=== PATIENT | female | born 1980 | race Caucasian/White ===

== ENCOUNTER 2017-04-07 10:29 | Emergency (ER) | payer MEDICAID ==
[~2017-04-07] VITALS: Ht 162.6 cm; Wt 73.5 kg
[~2017-04-07 10:29] MED LIST: PRENAT PO
[2017-04-07 10:31] VITALS: Ht 162.6 cm; Wt 73.5 kg
[2017-04-07] MEDS ORDERED: DIPHENHYDRAMINE 25 MG CAP PO ONE (11:00)
--- NOTE | 2017-04-07 11:10 | QN ---
Documentation Comment iup 23 weeks co of pruritic rash all over body for several day. no ob complaints vss papular rash over body nst reactive a/p iup 23 weeks pruritic rash- scabies? to ER for eval ob cleared MARY MOTA MD Apr 07, 2017 11:09
[2017-04-07 11:16] LABS: ADD SCAN DIFF NO
[2017-04-07 11:24] LABS: BASOPHILS % 0.1 % (0.0-2.0); EOSINOPHILS # 0.3 10^3/ul (0.0-0.5); EOSINOPHILS % 3.3 % (0.0-7.0); HEMATOCRIT 37.6 % (37.0-47.0); HEMOGLOBIN 12.9 g/dl (12.0-16.0); LYMPHOCYTES # 1.6 10^3/ul (0.8-2.9); LYMPHOCYTES % 17.7 % (15.0-51.0); MEAN CORPUSCULAR HEMOGLOBIN 29.5 pg (29.0-33.0); MEAN CORPUSCULAR HGB CONC 34.3 g/dl (32.0-37.0); MEAN CORPUSCULAR VOLUME 85.8 fl (82.0-101.0); MEAN PLATELET VOLUME 9.4 fl (7.4-10.4); MONOCYTE # 0.6 10^3/ul (0.3-0.9); MONOCYTES % 6.3 % (0.0-11.0); NEUTROPHIL # 6.7 10^3/ul (1.6-7.5); NEUTROPHILS % 72.2 % (39.0-77.0); PLATELET COUNT 300 10^3/UL (140-415); RED BLOOD COUNT 4.38 10^6/ul (4.20-5.40); RED CELL DISTRIBUTION WIDTH 13.8 % (11.5-14.5); WHITE BLOOD COUNT 9.3 10^3/ul (4.8-10.8)
[2017-04-07 11:41] LABS: ALBUMIN 4.2 g/dl (3.3-4.9); ALBUMIN/GLOBULIN RATIO 1.35; BILIRUBIN,INDIRECT 0.1 mg/dl (0-1.1); BILIRUBIN,TOTAL 0.1 mg/dl (0.2-1.3); CALCIUM 9.7 mg/dl (8.4-10.2); CREATININE 0.48 mg/dl (0.44-1.00); POTASSIUM 3.9 mmol/L (3.5-5.1); TOTAL PROTEIN 7.3 g/dl (6.1-8.1)
[2017-04-07] MEDS ORDERED: CETI10CA PO (11:45)
[2017-04-07] MEDS ORDERED: HC30CR25 TOP (11:45)
--- NOTE | 2017-04-07 11:50 | ERD ---
ER Documentation Chief Complaint Date/Time DATE: 04/07/17 TIME: 11:48 Chief Complaint GENERALIZED RASH X 3 DAYS , 24 WEEKS PREG , CLEARED BY OB TRIAGE HPI This 36-year-old female presents with an itchy rash for last 3 days. She is 24 weeks by dates. She denies any bleeding, fevers, vomiting, shortness of the chest pain or recent illnesses ROS All systems reviewed and are negative except as per history of present illness. Medications Home Meds Active Scripts Hydrocortisone* Topical (Hydrocortisone* Topical) 2.5%-28.3 Gm Cream..g., 1 APPLIC TOP QID for 7 Days, #1 TUB 30G Prov:MARYAM ARAMBULA MD 04/07/17 Cetirizine Hcl* (Zyrtec*) 10 Mg Capsule, 10 MG PO DAILY, #15 TAB.CHEW Prov:MARYAM ARAMBULA MD 04/07/17 Reported Medications Multivit/Min/Fol Ac/Iron/Pren* ( S*) 1 Tab Tab, 1 TAB PO DAILY, TAB 04/07/17 Allergies Allergies: Coded Allergies: No Known Allergy (Unverified , 03/27/15) PMhx/Soc Medical and Surgical Hx: pt denies Medical Hx, pt denies Surgical Hx Hx Alcohol Use: No Hx Substance Use: No Hx Tobacco Use: No Smoking Status: Never smoker Physical Exam Vitals Vital Signs Date Time Temp Pulse Resp B/P Pulse Ox O2 Delivery O2 Flow Rate FiO2 04/07/17 10:31 98.2 86 18 113/63 98 Physical Exam Const: [] Alert, not ill-appearing. Head: Atraumatic Eyes: Normal Conjunctiva ENT: Normal External Ears, Nose and Mouth. Neck: Full range of motion..~ No meningismus. Resp: Clear to auscultation bilaterally Cardio: Regular rate and rhythm, no murmurs Abd: Soft, non tender, non distended. Normal bowel sounds. Mass consistent with a second third trimester . Skin: No petechiae or purpura. There are scattered macular papular rash without warmth, induration, streaking or vesicles. Is primarily in the upper extremities. There is minimal on the trunk. Back: No midline or flank tenderness Ext: No cyanosis, or edema Neur: Awake and alert Psych: Normal Mood and Affect Result Diagram: 04/07/17 1100 04/07/17 1100 Results 24 hrs Laboratory Tests Test 04/07/17 11:00 White Blood Count 9.310^3/ul Red Blood Count 4.3810^6/ul Hemoglobin 12.9g/dl Hematocrit 37.6% Mean Corpuscular Volume 85.8fl Mean Corpuscular Hemoglobin 29.5pg Mean Corpuscular Hemoglobin Concent 34.3g/dl Red Cell Distribution Width 13.8% Platelet Count 95304^3/UL Mean Platelet Volume 9.4fl Neutrophils % 72.2% Lymphocytes % 17.7% Monocytes % 6.3% Eosinophils % 3.3% Basophils % 0.1% Nucleated Red Blood Cells % 0.0/100WBC Neutrophils # 6.710^3/ul Lymphocytes # 1.610^3/ul Monocytes # 0.610^3/ul Eosinophils # 0.310^3/ul Basophils # 0.010^3/ul Nucleated Red Blood Cells # 0.010^3/ul Sodium Level 140mmol/L Potassium Level 3.9mmol/L Chloride Level 102mmol/L Carbon Dioxide Level 22mmol/L Anion Gap 20 Blood Urea Nitrogen 7mg/dl Creatinine 0.48mg/dl Glucose Level 99mg/dl Calcium Level 9.7mg/dl Total Bilirubin 0.1mg/dl Direct Bilirubin 0.00mg/dl Indirect Bilirubin 0.1mg/dl Aspartate Amino Transf (AST/SGOT) 21IU/L Alanine Aminotransferase (ALT/SGPT) 20IU/L Alkaline Phosphatase 107IU/L Total Protein 7.3g/dl Albumin 4.2g/dl Globulin 3.10g/dl Albumin/Globulin Ratio 1.35 Current Medications Medications (Trade) Dose Ordered Sig/Allen Route PRN Reason Start Time Stop Time Status Last Admin Dose Admin Diphenhydramine HCl (Benadryl) 25 mg ONCE ONCE PO 04/07/17 11:00 04/07/17 11:02 DC 04/07/17 10:57 Procedures/MDM Patient was cleared by OB prior to ER evaluation. Patient presents with signs and symptoms of what appear to be an eczema-like rash or possibly viral exanthem. Concern is for cholestasis of although findings are not specific for this. Nonetheless CBC and CMP were performed which showed no acute abnormalities or transaminitis. Patient will be treated empirically with hydrocortisone and Zyrtec although this may be an unspecified rash of . Patient is advised to return for vaginal bleeding, fevers, worsening redness, vomiting, abdominal pain, new worsening symptoms with primary doctor this week. The patient was stable with no new complaints during the ER course. Clinically, there is no current evidence to suggest meningitis, sepsis, acute abdomen, pneumonia, acute coronary syndrome, pulmonary embolism, or any other emergent condition appearing to require further evaluation or hospitalization. The patient should certainly return for any new or worsening symptoms per the aftercare instructions. They should otherwise follow-up with her primary care doctor for reevaluation this week. Departure Diagnosis: Primary Impression: Rash Condition: Stable Patient Instructions: Dermatitis, Non-Specific Additional Instructions: Cheque otro vez con villa doctor primario en el proximo sosa or regresa para mas o nueva simptomas. MARYAM ARAMBULA MD Apr 07, 2017 11:50
[2017-04-09] MEDS ORDERED: BEN50 PO (05:21)
[2017-04-09] MEDS ORDERED: CEPH-443 PO (05:21)
== END 2017-04-07 12:05 | disposition home or self-care (01) ==
LOC: FTE 10:29
DX: O99.89 Other specified diseases and conditions complicating pregnancy, childbirth and the puerperium (principal); R21 Rash and other nonspecific skin eruption; Z3A.24 24 weeks gestation of pregnancy
CPT/HCPCS: 80053; 85025; Z7502; Z7610; 99283

== ENCOUNTER 2017-04-09 05:03 | Emergency (ER) | END 2017-04-09 05:45 | disposition home or self-care (01) | DX: R21 Rash and other nonspecific skin eruption (principal) | CPT/HCPCS: 96372; J1200; Z7502 ==

== ENCOUNTER 2017-04-28 15:49 | Inpatient (IN) | payer MEDICAID ==
[~2017-04-28] VITALS: Ht 160 cm; Wt 74.8 kg
[~2017-04-28 15:49] MED LIST changes: +BEN50 PO; +CEPH-443 PO; +CETI10CA PO; +HC30CR25 TOP
[2017-04-28 16:34] VITALS: Ht 160 cm; Wt 74.8 kg
[2017-04-28 17:34] VITALS: BP 109/56; PULSE 83; RESP 18
[2017-04-29 01:06] LABS: ALBUMIN 3.6 g/dl (3.3-4.9); ALBUMIN/GLOBULIN RATIO 1.02; CALCIUM 9.1 mg/dl (8.4-10.2); CREATININE 0.47 mg/dl (0.44-1.00); POTASSIUM 3.7 mmol/L (3.5-5.1); TOTAL PROTEIN 7.1 g/dl (6.1-8.1)
--- NOTE | 2017-04-29 01:46 | RADRPT ---
PROCEDURE: ULTRASOUND BIOPHYSICAL PROFILE CLINICAL INDICATION: 36-year-old female with decreased movement for viability . TECHNIQUE: Multiple sonographic images were obtained in order to perform a biophysical profile The images were reviewed on a PACS workstation. COMPARISON: None. FINDINGS: There is a single viable intrauterine gestation. There is a vertex presentation. Cardiac activity i s present at 126 beats per minute. The placenta is anterior. The results of the biophysical profile are as follows: breathing movement = 2/2 Gross body movement = 2/2 tone = 2/2 Qualitative amniotic fluid volume = 2/2 Amniotic fluid index equals 14.0 cm. This yields a biophysical profile score of 8/8. IMPRESSION: Biophysical profile score is 8/8. .Marquis Howard MD, Date Time Electronically viewed and signed by .Marquis Howard MD, on 04/29/2017 01:46 .M/
[2017-04-29] MEDS: LACTATED RINGER'S 1,000 ML IV SCH ×5 (01:59→18:15)
[2017-04-29] MEDS ORDERED: TERBUTALINE 1 MG/ML INJ SC SCH ×2 (02:30→03:00)
--- NOTE | 2017-04-29 06:46 | HP ---
Date/Time of Note Date/Time of Note DATE: 04/29/17 TIME: 06:29 OB - History Hx of Present Free Text/Dictation 36y.o had X2 at 27w 1d with itching sensation on whole body whose bile acid (cholic acid) was elevated on 04/09 3.1, 04/15 3.8 during the observation there was audible deceleration s on few occasions nor profound LFT wnl EFM mild uterine activities q4-7min patient has been using hydrocortisone cream and benadryl which wasnt relieving the itching sensation. patient was admitted for extended observation for FHR and initiated for ursodioland repeat fractionated bile acid and metabolic panel and christina consult Chief Complaint: body itching Estimated Due Date: Jul 27, 2017 : 3 Para: 2 Spontaneous : 0 Therapeutic : 0 Care: Good Care Ultrasounds: Normal mid trimester US Obstetrical Complications: None Medical Complications: None Past Family/Social History * Past Medical, Surgical, Family and Obstetric Histories reviewed from chart. Blood Type: O+ Rubella: immune RPR/VDRL: Negative GBS Status: Unknown HBsAG: Negative OB Admission Exam Vital Signs Vital Signs Vital Signs Date Time Temp Pulse Resp B/P Pulse Ox O2 Delivery O2 Flow Rate FiO2 04/28/17 17:34 98.5 83 18 109/56 Room Air Physical Exam HEENT: WNL Heart: Rhythm Normal Lungs: Clear, Equal Abdomen: WNL Extremities: Normal Reflexes: Normal Cervical Dilatation: other Effacement: Other Station: Other Membranes: Intact Amniotic Fluid: Unevaluable Heart Rate: 130's Accelerations: Accelerations Present Decelerations: Variable Decelerations Varibility: Moderate Contractions on Admission: 6-10 Minutes Apart Intensity: Mild Last 72 hours Lab Results CBC & BMP 04/28/17 20:15 Liver Function Test 04/28/17 20:15 Alanine Aminotransferase (ALT/SGPT) 30 Albumin 3.6 Alkaline Phosphatase 129 H Aspartate Amino Transf (AST/SGOT) 32 Direct Bilirubin 0.00 Total Protein 7.1 OB Assessment/Plan Other Assessment: IUP 27w1d cholestasis non reassuring FHR Other plan: extended observation JESÚS MCDERMOTT MD Apr 29, 2017 06:40
[2017-04-29 08:19] LABS: ADD UMIC YES; UR ASCORBIC ACID NEGATIVE (NEGATIVE); UR BILIRUBIN (Dip) NEGATIVE (NEGATIVE); UR BLOOD (Dip) NEGATIVE (NEGATIVE); UR BUDDING YEAST FEW /HPF (NONE SEEN); UR CLARITY CLOUDY (CLEAR); UR COLOR YELLOW (YELLOW); UR GLUCOSE (Dip) NEGATIVE (NEGATIVE); UR KETONES (Dip) NEGATIVE (NEGATIVE); UR LEUKOCYTE ESTERASE (Dip) 2+ Leu/ul (NEGATIVE); UR NITRITE (Dip) NEGATIVE (NEGATIVE); UR RBC 1 /HPF (0-5); UR TOTAL PROTEIN (Dip) NEGATIVE (NEGATIVE); UR UROBILINOGEN (Dip) NEGATIVE (NEGATIVE)
[2017-04-29] MEDS: DOCUSATE SODIUM 100 MG CAP PO SCH (09:00)
[2017-04-29] MEDS: URSODIOL 300 MG CAP PO SCH ×3 (09:23→21:06)
[2017-04-29] MEDS: PRENATAL VITAMIN PO SCH (09:23)
--- NOTE | 2017-04-29 15:52 | CONS ---
Date/Time of Note Date/Time of Note DATE: 04/29/17 TIME: 15:42 Consultation Date/Type/Reason Admit Date/Time Apr 29, 2017 at 02:15 OB high risk consult Reason for Consultation This patient is 36 years old 3 para 2 with estimated date of confinement of 07/27/2017 which makes her now 27 weeks and 1 day . She developed the symptoms of cholestasis of with pruritus of hands and legs. The bile acid level was ordered on April 09 the result was 3.1 and 6 days later on April 15 it was 3.8. For this reason she was admitted in high risk area for further evaluation and treatment. On examination there was some deceleration of heart rate occurred ,. Patient subsequently was admitted in the hospital. Another bile acid level was ordered 2 days ago which the result is not available now. However her other lab studies including CBC electrolyte and liver panel were all within normal limits except for somewhat elevated alkaline phosphatase which is not very unusual during . Laboratory Tests Test 04/28/17 20:15 Urine Color YELLOW Urine Clarity CLOUDY Urine pH 8.0 Urine Specific [place] 1.010 Urine Ketones NEGATIVEmg/dL Urine Nitrite NEGATIVEmg/dL Urine Bilirubin NEGATIVEmg/dL Urine Urobilinogen NEGATIVEmg/dL Urine Leukocyte Esterase 2+Juarez/ul Urine Microscopic RBC 1/HPF Urine Microscopic WBC 5/HPF Urine Calcium Oxalate Crystals MODERATE/HPF Urine Yeast (Budding) FEW/HPF Urine Hemoglobin NEGATIVEmg/dL Urine Glucose NEGATIVEmg/dL Urine Total Protein NEGATIVEmg/dl Sodium Level 140mmol/L Potassium Level 3.7mmol/L Chloride Level 104mmol/L Carbon Dioxide Level 23mmol/L Anion Gap 17 Blood Urea Nitrogen 7mg/dl Creatinine 0.47mg/dl Glucose Level 83mg/dl Calcium Level 9.1mg/dl Total Bilirubin 0.0mg/dl Direct Bilirubin 0.00mg/dl Indirect Bilirubin 0.0mg/dl Aspartate Amino Transf (AST/SGOT) 32IU/L Alanine Aminotransferase (ALT/SGPT) 30IU/L Alkaline Phosphatase 129IU/L Total Protein 7.1g/dl Albumin 3.6g/dl Globulin 3.50g/dl Albumin/Globulin Ratio 1.02 Current Medications Medications (Trade) Dose Ordered Sig/Allen Route PRN Reason Start Time Stop Time Status Last Admin Dose Admin Lactated Ringer's (Lr) 1,000 ml @ 125 mls/hr Q8H IV 04/29/17 01:59 04/29/17 09:23 125 MLS/HR Prenat Multivit/ Tax Consultant/Iron/Folic Ac () 1 tab DAILY PO 04/29/17 09:00 04/29/17 09:23 1 TAB Docusate Sodium (Colace) 100 mg DAILY PO 04/29/17 09:00 Ursodiol (Actigall) 300 mg TID PO 04/29/17 09:00 04/29/17 12:48 300 MG Terbutaline Sulfate (Brethine) 0.25 mg ONCE SC 04/29/17 02:30 04/30/17 02:29 Terbutaline Sulfate (Brethine) 0.25 mg ONCE SC 04/29/17 03:00 04/30/17 02:59 Constitutional: other, No chills, No diaphoresis, No disoriented, No febrile, No improved, No no complaints, No poor po, No requiring IVF, No requiring O2 Eyes: other (No evidence of jaundice on examination of the eyes), No discharge, No no complaints, No pain, No redness, No visual change ENT: No bleeding, No congestion, No discharge, No dysphagia, No no complaints, No other, No pain, No sore throat Respiratory: No cough, No no complaints, No other, No pain, No pleuritic pain, No shortness of breath, No sputum, No wheezing Cardiovascular: No chest pain, No edema, No lightheadedness, No no complaints, No orthopenea, No other, No palpitations, No paroxysmal nocturnal dyspnea Gastrointestinal: other (No hepatomegaly no abdominal pain), No blood, No constipation, No decreased appetite, No diarrhea, No flatus, No nausea, No no complaints, No pain, No passing stool, No vomiting Genitourinary: other (Due to lack of contractions pelvic exam was not performed ), No bleeding, No discharge, No dysuria, No flank pain, No hematuria, No no complaints Musculoskeletal: No back pain, No bone/joint pain, No neck pain, No no complaints, No other, No restricted range of motion, No swelling Skin: other (Some degree of erythema on hands and sole of the feet), No bruising, No erythema, No laceration, No no complaints, No pruritis, No rash, No skin lesions Neurologic: other (Knee-jerk reflex are normal), No confusion, No dizziness, No focal-weakness, No headache, No no complaints , No seizure, No syncope Additional Comments Today patient has list of itching and if she continues improving she will be discharged home to be followed in the clinic She is advised to continue Actigall 300 mg 3 times a day and have close follow- up in her rehabilitation aide/scheduler office also to be seen again in triage area for further monitoring Social History Smoking Status: Never smoker Exam/Review of Systems Vital Signs Vitals Vital Signs Date Time Temp Pulse Resp B/P Pulse Ox O2 Delivery O2 Flow Rate FiO2 04/28/17 17:34 98.5 83 18 109/56 Room Air Intake and Output 04/28/17 04/28/17 04/29/17 14:59 22:59 06:59 Intake Total 1250 ml Output Total 450 ml Balance 800 ml Results Result Diagram: 04/28/172014 Results 24 hrs Laboratory Tests Test 04/28/17 20:15 Urine Color YELLOW Urine Clarity CLOUDY A Urine pH 8.0 Urine Specific [place] 1.010 Urine Ketones NEGATIVE Urine Nitrite NEGATIVE Urine Bilirubin NEGATIVE Urine Urobilinogen NEGATIVE Urine Leukocyte Esterase 2+ H Urine Microscopic RBC 1 Urine Microscopic WBC 5 Urine Calcium Oxalate Crystals MODERATE Urine Yeast (Budding) FEW A Urine Hemoglobin NEGATIVE Urine Glucose NEGATIVE Urine Total Protein NEGATIVE Sodium Level 140 Potassium Level 3.7 Chloride Level 104 Carbon Dioxide Level 23 Anion Gap 17 H Blood Urea Nitrogen 7 Creatinine 0.47 Glucose Level 83 Calcium Level 9.1 Total Bilirubin 0.0 L Direct Bilirubin 0.00 Indirect Bilirubin 0.0 Aspartate Amino Transf (AST/SGOT) 32 Alanine Aminotransferase (ALT/SGPT) 30 Alkaline Phosphatase 129 H Total Protein 7.1 Albumin 3.6 Globulin 3.50 H Albumin/Globulin Ratio 1.02 Medications Medications Current Medications Lactated Ringer's (Lr) 1,000 ml @ 125 mls/hr Q8H IV Last administered on 09:23; Admin Dose 125 MLS/HR; Start 04/29/17 at 01:59 Prenat Multivit/ [place]/Iron/Folic Ac () 1 tab DAILY PO Last administered on 04/29/17 09:23; Admin Dose 1 TAB; Start 04/29/17 at 09:00 Docusate Sodium (Colace) 100 mg DAILY PO ; Start 04/29/17 at 09:00 Ursodiol (Actigall) 300 mg TID PO Last administered on 04/29/17t 12:48; Admin Dose 300 MG; Start 04/29/17 at 09:00 Terbutaline Sulfate (Brethine) 0.25 mg ONCE SC ; Start 04/29/17 at 02:30; Stop 04/30/17 at 02:29 Terbutaline Sulfate (Brethine) 0.25 mg ONCE SC ; Start 04/29/17 at 03:00; Stop 04/30/17 at 02:59 KENZIE OKEEFE MD Apr 29, 2017 15:52
[2017-04-29] MEDS ORDERED: ACETAMINOPHEN 325 MG TAB PO PRN (19:00)
[2017-04-30] MEDS: LACTATED RINGER'S 1,000 ML IV SCH ×3 (02:01→18:07)
[2017-04-30 08:01] LABS: ALBUMIN/GLOBULIN RATIO 0.96; BILIRUBIN,INDIRECT 0.2 mg/dl (0-1.1); BILIRUBIN,TOTAL 0.2 mg/dl (0.2-1.3); CALCIUM 8.3 mg/dl (8.4-10.2); CREATININE 0.58 mg/dl (0.44-1.00); POTASSIUM 3.5 mmol/L (3.5-5.1); TOTAL PROTEIN 6.1 g/dl (6.1-8.1)
[2017-04-30] MEDS: DOCUSATE SODIUM 100 MG CAP PO SCH (09:32)
[2017-04-30] MEDS: PRENATAL VITAMIN PO SCH (09:32)
[2017-04-30] MEDS: URSODIOL 300 MG CAP PO SCH ×3 (09:32→20:49)
--- NOTE | 2017-04-30 12:37 | PN ---
Date/Time of Note Date/Time of Note DATE: 04/30/17 TIME: 12:34 OB Subjective Subjective Subjective Patient denies any complaint. Reports that her body itching resolved after she was a started on ursodiol. Denies any leaking of fluid, vaginal bleeding, contractions or decreased movement. OB Objective Objective Objective General appearance: Alert and oriented 4 patient does not appear to be in any acute distress Abdomen: Soft, gravid, fundal height consistent with gestational age, nontender NST reviewed: Category 1 no contraction the monitor Skin: No rash no evidence of excoriation or lesion, Extremities: No calf tenderness, no click no edema Chemistry Test 04/28/17 20:15 04/30/17 06:59 Sodium Level 140mmol/L (135-144) 140mmol/L (135-144) Potassium Level 3.7mmol/L (3.5-5.1) 3.5mmol/L (3.5-5.1) Chloride Level 104mmol/L (97-110) 106mmol/L (97-110) Carbon Dioxide Level 23mmol/L (21-31) 25mmol/L (21-31) Anion Gap 17 (8-16) H 13 (8-16) Blood Urea Nitrogen 7mg/dl (7-20) 9mg/dl (7-20) Creatinine 0.47mg/dl (0.44-1.00) 0.58mg/dl (0.44-1.00) Glucose Level 83mg/dl (70-220) 83mg/dl (70-220) Calcium Level 9.1mg/dl (8.4-10.2) 8.3mg/dl (8.4-10.2) L Total Bilirubin 0.0mg/dl (0.2-1.3) L 0.2mg/dl (0.2-1.3) Direct Bilirubin 0.00mg/dl (0.00-0.20) 0.00mg/dl (0.00-0.20) Indirect Bilirubin 0.0mg/dl (0-1.1) 0.2mg/dl (0-1.1) Aspartate Amino Transf (AST/SGOT) 32IU/L (15-46) 18IU/L (15-46) Alanine Aminotransferase (ALT/SGPT) 30IU/L (13-69) 26IU/L (13-69) Alkaline Phosphatase 129IU/L (42-121) H 100IU/L (42-121) Total Protein 7.1g/dl (6.1-8.1) 6.1g/dl (6.1-8.1) # Albumin 3.6g/dl (3.3-4.9) 3.0g/dl (3.3-4.9) L Globulin 3.50g/dl (1.3-3.2) H 3.10g/dl (1.3-3.2) Albumin/Globulin Ratio 1.02 0.96 OB Assessment/Plan Other Assessment: IUP at 27 weeks care at [facility] Presented with whole body itching to triage had been using Benadryl and hydrocortisone cream that was not helping Audible deceleration was noted while in triage Bile acids were drawn before per H&P report, colic acid was elevated. I could not find the results though LFTs are stable No evidence of PUPPS Symptoms resolved after she was a started on ursodiol 3 times daily Audible deceleration noted in triage NST reactive and category 1 Perinatology consultation pending Continue to monitor closely continuous Perinatology consult tomorrow Continue ursodiol Obtain bile acid lab reports. FAIZAN GARCIA MD Apr 30, 2017 12:37
[2017-05-01] MEDS: LACTATED RINGER'S 1,000 ML IV SCH ×2 (01:29→09:30)
[2017-05-01] MEDS: URSODIOL 300 MG CAP PO SCH ×2 (08:40→12:58)
[2017-05-01] MEDS: DOCUSATE SODIUM 100 MG CAP PO SCH (08:40)
[2017-05-01] MEDS: PRENATAL VITAMIN PO SCH (08:41)
--- NOTE | 2017-05-01 12:51 | QN ---
Documentation Comment I was asked to perform consultation for Juve Jarrell. She is an 36- year-old 3, para 2 female who has been admitted to [facility] with cholestasis and is now receiving Actigall. There does not appear to be any imminent threat of delivery at this point. I spoke with mom regarding the possibility that the may be born early given her diagnosis of cholestasis. Discussed risks associated with late prematurity including but not limited to low birthweight, poor feeding, respiratory distress, hypothermia, hypoglycemia. I discussed with mom that these may be reasons for which the may be admitted to NICU, if infant is born after 35 weeks. Mom verbalized understanding of our discussion. All questions answered at this point CRAIG BARAHONA MD May 01, 2017 12:51
--- NOTE | 2017-05-01 12:51 | PN ---
Date/Time of Note Date/Time of Note DATE: 05/01/17 TIME: 12:41 KENZIE OKEEFE MD May 01, 2017 12:51 May 01, 2017 OB high risk visit This patient is 36 years old 3 para 2 with estimated date of confinement of 07/27/2017 which makes her now 27 weeks and 4 day . She developed the symptoms of cholestasis of with pruritus of hands and legs. The bile acid level was ordered on April 09 the result was 3.1 and 6 days later on April 15 it was 3.8. KENZIE OKEEFE MD May 01, 2017 12:51
--- NOTE | 2017-05-01 15:07 | PERINOTE ---
Date/Time of Note Date/Time of Note DATE: 05/01/17 TIME: 14:54 Assessment/Recommendations Other Assessments IUP at 27+ weeks GA by history Itching. Thi history is not highly suggestive of cholestasis given the presence of a rash and the normal bile acids (the usual criterion for a diagnosis of cholestasis is a fasting total bile acid of above 10, and the fetuses at risk are generally those whose maternal fasting bile acids are above 40) Recommendations: Feel that this patient could be sent home Would await the result of total bile acids sent on 04/29. If this is normal, would discontinue the ursodiol. If a diagnosis of cholestasis is made, would follow with growth US every 3-4 weeks and begin testing at 32 weeks. Delivery timing would depend on the patient's bile acids and liver functions. OB Subjective Free Text/Dictaton Patient complained of itching, admitted for treatment of presumed cholestasis with ursodiol. Patient reports that the itching began with a rash on her arms and legs. She has been seen on other occasions with this and bile acids and LFTs have been normal. HD# 3 IUP @ 27W4D Current Medications Current Medications Lactated Ringer's (Lr) 1,000 ml @ 125 mls/hr Q8H IV Last administered on 09:30; Admin Dose 125 MLS/HR; Start 04/29/17 at 01:59 Prenat Multivit/ [place]/Iron/Folic Ac () 1 tab DAILY PO Last administered on 05/01/17 08:41; Admin Dose 1 TAB; Start 04/29/17 at 09:00 Docusate Sodium (Colace) 100 mg DAILY PO Last administered on 05/01/17 08:40; Admin Dose 100 MG; Start 04/29/17 at 09:00 Ursodiol (Actigall) 300 mg TID PO Last administered on 05/01/17 12:58; Admin Dose 300 MG; Start 04/29/17 at 09:00 Acetaminophen (Tylenol Tab) 650 mg Q6H PRN PO PAIN AND OR ELEVATED TEMP Last administered on 04/29/17 19:04; Admin Dose 650 MG; Start 04/29/17 at 19:00 Past Medical History Medical History: no pertinent history Surgical History: no surgical history Para: 2 : 3 LMP (Females 10-50): Family History Significant Family History: no pertinent family hx Social History Smoker: non-smoker Alcohol: none Drugs: none OB Admission Exam Physical Exam Vitals: Vital Signs Date Time Temp Pulse Resp B/P Pulse Ox O2 Delivery O2 Flow Rate FiO2 04/28/17 17:34 98.5 83 18 109/56 Room Air 05/01/17 98.1 84 16 98/58 Heart: Rhythm Normal Lungs: Clear Abdomen: WNL Last 72 hours Lab Results CBC & BMP 04/28/17 20:15 04/30/17 06:59 Liver Function Test 04/28/17 20:15 04/30/17 06:59 Alanine Aminotransferase (ALT/SGPT) 30 26 Albumin 3.6 3.0 L Alkaline Phosphatase 129 H 100 Aspartate Amino Transf (AST/SGOT) 32 18 Direct Bilirubin 0.00 0.00 Total Protein 7.1 6.1 # Copies To: CC: GEMINI HENDRICKSON MD, MARIE H MD May 01, 2017 15:07
--- NOTE | 2017-05-01 15:52 | DS ---
Date/Time of Note Date/Time of Note DATE: 05/01/17 TIME: 15:43 Obstetrical Discharge Record Final Diagnosis Final Diagnosis: not delivered Other Final Diagnosis May 01, 2070 OB high risk visit on discharge This patient is a 36 years old 3 para 2 with EDC of July 27, 2017 which no mixer 27 weeks and 6 days, who was admitted in the hospital due to elevated bile acid on April 29, 2017. Her bile acid level on April 09 was 3.1 and then 6 days later on April 15 it was 3.8. Due to just concerned that she was admitted in flight risk will be service. A repeat biopsy at the level was ordered which will be available 2-3 weeks later. heart tone is normal she does not have much of the contractions. Her lab works in the studies so far were normal Current Medications Medications (Trade) Dose Ordered Sig/Allen Route PRN Reason Start Time Stop Time Status Last Admin Dose Admin Lactated Ringer's (Lr) 1,000 ml @ 125 mls/hr Q8H IV 04/29/17 01:59 05/01/17 09:30 Prenat Multivit/ [place]/Iron/Folic Ac () 1 tab DAILY PO 04/29/17 09:00 05/01/17 08:41 Docusate Sodium (Colace) 100 mg DAILY PO 04/29/17 09:00 05/01/17 08:40 Ursodiol (Actigall) 300 mg TID PO 04/29/17 09:00 05/01/17 12:58 Terbutaline Sulfate (Brethine) 0.25 mg ONCE SC 04/29/17 02:30 04/29/17 18:47 DC Terbutaline Sulfate (Brethine) 0.25 mg ONCE SC 04/29/17 03:00 04/30/17 02:59 DC Acetaminophen (Tylenol Tab) 650 mg Q6H PRN PO PAIN AND OR ELEVATED TEMP 04/29/17 19:00 04/29/17 19:04 She has been seen and evaluated by Dr. Tate perinatologist who recommended the patient to be discharged and be followed her obstetricians office She will also follow-up in triage every few days to ensure the safety of the baby Before discharging the patient she was instructed to do kick count twice a day if you notice any low movement she immediately come to labor and delivery room. Complications Gestational Age at Rupture Patient condition at the time of discharge was stable and her final diagnosis is 27 weeks cholestasis of Condition on Discharge Physical Assessment Voiding: Yes Bowel Movement: Yes Breast: Soft, non-tender Calf Tenderness: No Patient Condition: Good KENZIE OKEEFE MD May 01, 2017 15:52
[2017-05-03 20:19] LABS: CHENODEOXYCHOLIC ACID 0.6 umol/L (< OR = 3.1); CHOLIC ACID 0.5 umol/L (< OR = 1.8); DEOXYCHOLIC ACID 1.4 umol/L (< OR = 2.4); TOTAL BILE ACIDS 2.5 umol/L (< OR = 6.8)
== END 2017-05-01 16:50 | disposition home or self-care (01) | DRG 781 ==
LOC: OBT 15:49 → L-D 15:53 → OBT 04-29 02:15 → L-D 04-29 02:15 → OBG 04-29 10:00
DX: O26.612 Liver and biliary tract disorders in pregnancy, second trimester (principal); K83.1 Obstruction of bile duct; Z3A.27 27 weeks gestation of pregnancy
CPT/HCPCS: 36415; 76818; 80053; 81001; 83789; 87086; 96360; 96361; G0463; J7120

== ENCOUNTER 2017-07-06 13:48 | Inpatient (IN) | END 2017-07-08 18:52 | disposition home or self-care (01) | DRG 775 | DX: O70.0 First degree perineal laceration during delivery (principal); Z37.0 Single live birth; Z3A.37 37 weeks gestation of pregnancy ==

== ENCOUNTER 2017-11-07 09:31 | Day surgery (SDC) | END 2017-11-07 16:49 | disposition home or self-care (01) ==